=== PATIENT | female | born 2000 | race Caucasian/White ===

== ENCOUNTER 2023-08-14 00:58 | Emergency (ER) | payer OTHER, MEDICAID ==
[2023-08-14 01:42] LABS: Absolute Neutrophil Ct (ANC) 8.33 x10^3/uL (1.4-6.9); BASOPHIL % 0.2 % (0.0-0.4); Basophil (Absolute #) 0.02 x10^3/uL (0-0.4); Eosinophil % 0.5 % (0.00-5.0); Eosinophil (Absolute #) 0.05 x10^3/uL (0-0.5); Hematocrit 43.5 % (35-47); Hemoglobin 14.7 g/dL (12.0-16.0); IMMATURE GRAN # 0.03 x10^3u/L (0.00-0.03); IMMATURE GRAN % 0.3 % (0.00-0.4); Lymphocyte (Absolute #) 0.76 x10^3/uL (1.0-4.6); Lymphocytes % 7.9 % (24.0-44.0); Mean Cell Volume 88.6 fL (78-100); Mean Corpuscular Hemoglobin 29.9 pg (26-32); Mean Corpuscular Hgb Concent. 33.8 g/dL (32-36); Mean Platelet Volume 10.6 fL (7.5-11.0); Monocyte (Absolute #) 0.43 x10^3/uL (0.0-1.3); Monocytes % 4.5 % (0.0-12.0); Neutrophil % 86.6 % (36.0-66.0); Platelet Count 201 x10^3/uL (150-450); Red Blood Count 4.91 x10^6/uL (4.1-5.4); Red Cell Distribution Width 11.4 % (11.5-14.0); White Blood Count 9.6 x10^3/uL (4.0-10.5)
[2023-08-14 01:44] LABS: HCG URINE TEST NEGATIVE (NEGATIVE)
[2023-08-14 01:48] LABS: Appearance Clear (Clear); Bacteria Few /HPF (None Seen); Bilirubin Negative (Negative); Blood Negative (Negative); Epithelial Cells Few /HPF (None Seen); Glucose, Urine Negative (Negative); Ketones 40 (Negative); Leukocyte Esterase Negative (Negative); Nitrite Negative (Negative); Ph 5.5 (4.6-8.0); Protein,Urine Dip Trace (Negative); RBC 0-2 /HPF (0-5); Specific Gravity >=1.030 (1.005-1.030)
[2023-08-14 01:49] VITALS: RESP 20; TEMP 97.2; O2SAT 98
[2023-08-14] MEDS ORDERED: Zofran 4 MG/2 ML VIAL ONE (01:50)
[2023-08-14] MEDS ORDERED: Sodium Chloride 0.9% 1000 ML 1,000 ML ONE (01:50)
[2023-08-14] MEDS: Sodium Chloride 0.9% 1000 ML 1,000 ML IV STA (01:51)
[2023-08-14] MEDS: Zofran 4 MG/2 ML VIAL IV ONE (01:51)
[2023-08-14 01:54] LABS: ADD URINE CULTURE? YES (NO)
[2023-08-14 01:55] LABS: ALBUMIN 4.8 g/dL (3.5-5.0); BILIRUBIN,TOTAL 0.6 mg/dL (0.2-1.3); Calcium 9.5 mg/dL (8.4-10.2); Creatinine 1 0.97 mg/dL (0.52-1.04); EST GLOMERULAR FILTRATION RATE 85.8 ML/MIN; Potassium 3.9 mmol/L (3.5-5.1); Total Protein 8.3 g/dL (6.3-8.2)
[2023-08-14 02:00] LABS: Amphetamine,Urine NEGATIVE (NEGATIVE); Barbiturate,Urine NEGATIVE (NEGATIVE); Benzodiazepine,Urine NEGATIVE (NEGATIVE); Cocaine,Urine NEGATIVE (NEGATIVE); Methadone,Urine NEGATIVE (NEGATIVE); Opiate,Urine NEGATIVE (NEGATIVE); PCP,Urine NEGATIVE (NEGATIVE); THC,Urine NEGATIVE (NEGATIVE)
--- NOTE | 2023-08-14 02:24 | ERPHSYRPT ---
- History of Present Illness Time Seen by Provider: 08/14/23 01:30 Historian: patient Exam Limitations: no limitations Patient Subjective Stated Complaint: pt states that she has been having stomach pain off and on all day Triage Nursing Assessment: pt ambulated into the er; pt is axo x4; c/o abd pain; pt states 8/10 pain to abd; abd soft, round, tender; active bowel sounds in all quads; c/o N/V/D; mucus membranes pink and moist; skin cohen, warm, dry; no respiratory distress present; vitals wnl Physician History: 22yo f pmhx diverticulosis, IBS presents for n/v/d/abdominal pain. Pt reports this pain started roughly 5h prior to arrival in ED. Pt states her pain is located in the epigastric region, does not radiate. Pt admits to NB emesis x 1 w/ continued nausea, reports 2 episodes of non-bloody diarrhea. Pt denies any recent travel, denies ingestion of any foods that are outside her typical diet. Pt does report she had a viral URI last week. Pt currently denies cp, soa, fevers, chills. 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) Activities at Onset: none Quality: burning, cramping Abdominal Pain Onset Location: epigastric Pain Radiation: no radiation Severity of Pain-Max: moderate Severity of Pain-Current: mild Modifying Factors: Improves With: nothing Associated Symptoms: diarrhea, nausea, vomiting, No back, No chest pain, No diaphoresis, No fever/chills Previous symptoms: no prior history Body Map: 1 - epigastric pain Allergies/Adverse Reactions: No Known Drug Allergies Allergy (Unverified 08/14/23 01:18) Home Medications: Buspirone HCl 5 mg [Buspar 5 mg] 10 mg PO DAILY 08/14/23 [History] Multivitamin with Iron [Multivitamins with Iron] 1 each PO DAILY 08/14/23 [History] Norgestimate-Ethinyl Estradiol [Estarylla 0.25-0.035 mg Tablet] 1 each PO DAILY 08/14/23 [History] Omeprazole 40 mg PO DAILY 08/14/23 [History] buPROPion HCL [Wellbutrin Xl] 150 mg PO DAILY 08/14/23 [History] Hx Tetanus, Diphtheria Vaccination/Date Given: Yes Hx Influenza Vaccination/Date Given: Yes Hx Pneumococcal Vaccination/Date Given: No Immunizations Up to Date: Yes Travel Risk - International Travel Have you traveled outside of the country in past 3 weeks: No - Coronavirus Screening Are you exhibiting any of the following symptoms?: Yes Symptoms: Vomiting/Diarrhea Close contact with a COVID-19 positive Pt in past 14-21 Days: No - Vaccine Status Have you recieved a Covid-19 vaccination: Yes 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[place] - Vaccination Dates Date of 2cond Vaccination (if applicable): 2020 - Review of Systems Constitutional: No Fever, No Chills, No Fatigue Respiratory: No Symptoms Cardiac: No Symptoms Abdominal/Gastrointestinal: Abdominal Pain, Nausea, Vomiting, Diarrhea, No Constipation, No Hematemesis, No Hematochezia, No Melena Genitourinary Symptoms: No Symptoms - Past Medical History Pertinent Past Medical History: Yes GI Medical History: Diverticulosis, GERD, Irritable Bowel Psycho-Social History: Anxiety, Depression - Past Surgical History Past Surgical History: No - Social History Smoking Status: Never smoker Exposure to second hand smoke: No Drug Use: none Patient Lives Alone: No - Female History Hx Now: No - Nursing Vital Signs Nursing Vital Signs: Initial Vital Signs Temperature 97.2 F 08/14/23 01:22 Pulse Rate 93 H 08/14/23 01:22 Respiratory Rate 20 08/14/23 01:22 Blood Pressure 133/88 08/14/23 01:22 O2 Sat by Pulse Oximetry 98 08/14/23 01:22 Pain Scale Pain Intensity 3 - Physical Exam General Appearance: no apparent distress, alert Respiratory Exam: normal breath sounds, lungs clear, airway intact, No chest tenderness, No respiratory distress Cardiovascular Exam: regular rate/rhythm, normal heart sounds, No murmur Gastrointestinal/Abdomen Exam: soft, normal bowel sounds, tenderness (epigastric), No distention, No guarding, No rebound SpO2 Interpretation: normal SpO2: 98 O2 Delivery: Room Air Ordered Tests: Active Orders 24 hr Category Date Time Status ABDOMEN AND PELVIS W CONTRAST [CT] Stat Exams 08/14/23 01:47 Completed CBC W DIFF Stat Lab 08/14/23 01:30 Completed CMP Stat Lab 08/14/23 01:30 Completed CULTURE,URINE Stat Lab 08/14/23 01:30 Received HCG QUALITATIVE, URINE Stat Lab 08/14/23 01:30 Completed LIPASE Stat Lab 08/14/23 01:30 Completed UA W/RFX UR CULTURE Stat Lab 08/14/23 01:30 Completed Urine Triage Profile Stat Lab 08/14/23 01:30 Completed Medication Summary Discontinued Medications Generic Name Dose Route Start Last Admin Trade Name Clark PRN Reason Stop Dose Admin Sodium Chloride 1,000 mls @ 999 mls/hr 08/14/23 01:20 08/14/23 03:15 Sodium Chloride 0.9% 1000 Ml IV 08/14/23 02:20 Infused .Q1H1M STA Infusion Sodium Chloride Confirm 08/14/23 01:50 Sodium Chloride 0.9% 1000 Ml Administered 08/14/23 01:51 Dose 1,000 mls @ ud .ROUTE .STK-MED ONE Ondansetron HCl 4 mg 08/14/23 01:46 08/14/23 01:51 Ondansetron Hcl 4 Mg/2 Ml Vial IV 08/14/23 01:47 4 mg STAT ONE Administration Ondansetron HCl Confirm 08/14/23 01:50 Ondansetron Hcl 4 Mg/2 Ml Vial Administered 08/14/23 01:51 Dose 4 mg .ROUTE .STK-MED ONE Lab/Rad Data: Laboratory Result Diagrams 08/14/23 01:30 08/14/23 01:30 Laboratory Results 08/14/23 08/14/23 08/14/23 Range/Units 01:30 01:30 01:30 WBC (4.0-10.5) x10^3/uL RBC (4.1-5.4) x10^6/uL Hgb (12.0-16.0) g/dL Hct (35-47) % MCV (78-100) fL MCH (26-32) pg MCHC (32-36) g/dL RDW (11.5-14.0) % Plt Count (150-450) x10^3/uL MPV (7.5-11.0) fL Gran % (36.0-66.0) % Immature Gran % (Auto) (0.00-0.4) % Nucleat RBC Rel Count (0.00-0.1) % Eos # (Auto) (0-0.5) x10^3/uL Immature Gran # (Auto) (0.00-0.03) x10^3u/L Absolute Lymphs (auto) (1.0-4.6) x10^3/uL Absolute Monos (auto) (0.0-1.3) x10^3/uL Absolute Nucleated RBC (0.00-0.01) x10^3u/L Lymphocytes % (24.0-44.0) % Monocytes % (0.0-12.0) % Eosinophils % (0.00-5.0) % Basophils % (0.0-0.4) % Absolute Granulocytes (1.4-6.9) x10^3/uL Basophils # (0-0.4) x10^3/uL Sodium (135-145) mmol/L Potassium (3.5-5.1) mmol/L Chloride (98-107) mmol/L Carbon Dioxide (22-30) mmol/L Anion Gap (5-15) MEQ/L BUN (7-17) mg/dL Creatinine (0.52-1.04) mg/dL Estimated GFR ML/MIN Glucose (74-106) mg/dL Calcium (8.4-10.2) mg/dL Total Bilirubin (0.2-1.3) mg/dL AST (14-36) U/L ALT (0-35) U/L Alkaline Phosphatase (38-126) U/L Serum Total Protein (6.3-8.2) g/dL Albumin (3.5-5.0) g/dL Lipase (23-300) U/L Urine Color Dark Yellow A (Yellow) Urine Appearance Clear (Clear) Urine pH 5.5 (4.6-8.0) Ur Specific [place] >=1.030 A (1.005-1.030) Urine Protein Trace A (Negative) Urine Glucose (UA) Negative (Negative) mg/dL Urine Ketones 40 A (Negative) Urine Blood Negative (Negative) Urine Nitrite Negative (Negative) Urine Bilirubin Negative (Negative) Urine Urobilinogen 1.0 A (0.2) mg/dL Ur Leukocyte Esterase Negative (Negative) U Hyaline Cast (Auto) 3-5 A (0-2) /LPF Urine Microscopic RBC 0-2 (0-5) /HPF Urine Microscopic WBC 6-10 A (0-5) /HPF Ur Epithelial Cells Few (None Seen) /HPF Urine Bacteria Few A (None Seen) /HPF Urine Culture Reflexed YES (NO) Urine HCG, Qual NEGATIVE (NEGATIVE) Urine Opiates Level NEGATIVE (NEGATIVE) Ur Methadone NEGATIVE (NEGATIVE) Urine Barbiturates NEGATIVE (NEGATIVE) Ur Phencyclidine (PCP) NEGATIVE (NEGATIVE) Urine Amphetamine NEGATIVE (NEGATIVE) U Benzodiazepine Level NEGATIVE (NEGATIVE) Urine Cocaine NEGATIVE (NEGATIVE) Urine Marijuana (THC) NEGATIVE (NEGATIVE) 08/14/23 08/14/23 Range/Units 01:30 01:30 WBC 9.6 (4.0-10.5) x10^3/uL RBC 4.91 (4.1-5.4) x10^6/uL Hgb 14.7 (12.0-16.0) g/dL Hct 43.5 (35-47) % MCV 88.6 (78-100) fL MCH 29.9 (26-32) pg MCHC 33.8 (32-36) g/dL RDW 11.4 L (11.5-14.0) % Plt Count 201 (150-450) x10^3/uL MPV 10.6 (7.5-11.0) fL Gran % 86.6 H (36.0-66.0) % Immature Gran % (Auto) 0.3 (0.00-0.4) % Nucleat RBC Rel Count 0.0 (0.00-0.1) % Eos # (Auto) 0.05 (0-0.5) x10^3/uL Immature Gran # (Auto) 0.03 (0.00-0.03) x10^3u/L Absolute Lymphs (auto) 0.76 L (1.0-4.6) x10^3/uL Absolute Monos (auto) 0.43 (0.0-1.3) x10^3/uL Absolute Nucleated RBC 0.00 (0.00-0.01) x10^3u/L Lymphocytes % 7.9 L (24.0-44.0) % Monocytes % 4.5 (0.0-12.0) % Eosinophils % 0.5 (0.00-5.0) % Basophils % 0.2 (0.0-0.4) % Absolute Granulocytes 8.33 H (1.4-6.9) x10^3/uL Basophils # 0.02 (0-0.4) x10^3/uL Sodium 140 (135-145) mmol/L Potassium 3.9 (3.5-5.1) mmol/L Chloride 105 (98-107) mmol/L Carbon Dioxide 22 (22-30) mmol/L Anion Gap 16.0 H (5-15) MEQ/L BUN 18 H (7-17) mg/dL Creatinine 0.97 (0.52-1.04) mg/dL Estimated GFR 85.8 ML/MIN Glucose 98 (74-106) mg/dL Calcium 9.5 (8.4-10.2) mg/dL Total Bilirubin 0.60 (0.2-1.3) mg/dL AST 44 H (14-36) U/L ALT 18 (0-35) U/L Alkaline Phosphatase 61 (38-126) U/L Serum Total Protein 8.3 H (6.3-8.2) g/dL Albumin 4.8 (3.5-5.0) g/dL Lipase 138 (23-300) U/L Urine Color (Yellow) Urine Appearance (Clear) Urine pH (4.6-8.0) Ur Specific [place] (1.005-1.030) Urine Protein (Negative) Urine Glucose (UA) (Negative) mg/dL Urine Ketones (Negative) Urine Blood (Negative) Urine Nitrite (Negative) Urine Bilirubin (Negative) Urine Urobilinogen (0.2) mg/dL Ur Leukocyte Esterase (Negative) U Hyaline Cast (Auto) (0-2) /LPF Urine Microscopic RBC (0-5) /HPF Urine Microscopic WBC (0-5) /HPF Ur Epithelial Cells (None Seen) /HPF Urine Bacteria (None Seen) /HPF Urine Culture Reflexed (NO) Urine HCG, Qual (NEGATIVE) Urine Opiates Level (NEGATIVE) Ur Methadone (NEGATIVE) Urine Barbiturates (NEGATIVE) Ur Phencyclidine (PCP) (NEGATIVE) Urine Amphetamine (NEGATIVE) U Benzodiazepine Level (NEGATIVE) Urine Cocaine (NEGATIVE) Urine Marijuana (THC) (NEGATIVE) - Progress Progress: improved Progress Note: 08/14/23 03:20 CT abd/pel negative for acute abdominal pathology pt reports significant improvement in pain and nausea after IV fluids and zofran labs grossly normal, UA suggestive of dehydration, no UTI Likely viral gastritis/gastroenteritis in setting of recent URI pt reports significant improvement in sx plan for dc home, instructed to hydrate w/ clear liquids/pedialyte/gatorade diet as tolerated, recommend bland carbohydrates initially f/u w/ PCP as needed return to ED if sx worsen, fever spikes, emesis or stool becomes bloody Counseled pt/family regarding: lab results, diagnosis, need for follow-up, rad r [employer] - Diagnostic Testing Diagnostic test were ordered, analyzed, and reviewed by me: Yes Radiological Interpretation: Reviewed by me, Teleradiologist Report - Risk of complications Minimal Risk: Minimal risk of morbidity - Departure Departure Disposition: Home Clinical Impression: Viral gastroenteritis Condition: Stable Critical Care Time: No Referrals: EFRAIN NEWMAN, GLASS TUBE BENDER [Primary Care Provider] - Follow up/PCP as directed Additional Instructions: instructed to hydrate w/ clear liquids/pedialyte/gatorade diet as tolerated, recommend bland carbohydrates initially f/u w/ PCP as needed return to ED if sx worsen, fever spikes, emesis or stool becomes bloody
--- NOTE | 2023-08-14 03:05 | XRAY ---
CLINICAL HISTORY: epigastric pain TECHNIQUE: CT of the abdomen and pelvis was performed with axial images and sagittal and coronal reconstruction images with intravenous contrast. COMPARISON: None FINDINGS: The liver is average in size, it shows normal morphology and appears unremarkable with no intrahepatic or extrahepatic bile duct dilation. Gall bladder appears normal with wall thickness. No radio-opaque calculus or pericholecystic fluid was identified. Common bile appears normal. Unremarkable appearing pancreas. No pancreatic mass or ductal dilatation is seen. Unremarkable appearing spleen. The adrenal glands are normal. The kidneys appear unremarkable with no stones or hydronephrosis. The ureters are normal with no stones. The bladder is unremarkable with no stones. Unremarkable uterus and ovaries. Unremarkable abdominal aorta without specific evidence of aneurysm or dissection. The stomach appears unremarkable. Unremarkable appearing duodenum. The appendix is visualized and appears normal. No evidence of fat stranding. The colon is non-distended. No free air and no ascites. No free intraperitoneal air is seen. Bones appear grossly unremarkable apart from mild lumbar scoliosis convex to the left side. Clear scanned lung bases. IMPRESSION: Unremarkable CT study of the abdomen and pelvis. No acute abnormalities were detected. Electronically Signed by: Sveta Ayala MD. (08/14/2023 03:01:07 EST)
[2023-08-14 03:34] VITALS: BP 121/98; PULSE 93
== END 2023-08-14 03:34 | disposition home or self-care (01) ==
LOC: ED 00:58
DX: A08.4 Viral intestinal infection, unspecified (principal); R11.2 Nausea with vomiting, unspecified; R19.7 Diarrhea, unspecified; Z20.828 Contact with and (suspected) exposure to other viral communicable diseases; R10.13 Epigastric pain
CPT/HCPCS: 36000; 36415; 74177; 80053; 80307; 81001; 81025; 83690; 85025; 87086; 96360; 96374; 99284; J2405

== ENCOUNTER 2023-10-19 09:51 | Observation (INO) | payer OTHER, MEDICAID ==
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
[2023-10-19] MEDS ORDERED: Sterile H2O 10 ml IJ ONE (10:29)
[2023-10-19] MEDS ORDERED: solu-MEDROL ONE (10:30)
[2023-10-19] MEDS ORDERED: Zofran 4 MG/2 ML VIAL ONE (10:30)
[2023-10-19] MEDS ORDERED: Pepcid 20 MG VIAL IV ONE (10:30)
[2023-10-19] MEDS ORDERED: MORPHINE SULFATE 2 MG INJ ONE (10:31)
[2023-10-19] MEDS: Zofran 4 MG/2 ML VIAL IV ONE (10:37)
[2023-10-19] MEDS: solu-MEDROL 125 MG, Sterile H2O 10 ml 2 ML IV ONE (10:41)
[2023-10-19] MEDS: MORPHINE SULFATE 2 MG INJ IV ONE (10:41)
[2023-10-19] MEDS: Pepcid 20 MG VIAL IV SCH (10:41)
[2023-10-19 10:54] LABS: Absolute Neutrophil Ct (ANC) 4.92 x10^3/uL (1.4-6.9); BASOPHIL % 0.5 % (0.0-0.4); Basophil (Absolute #) 0.04 x10^3/uL (0-0.4); Eosinophil % 2.1 % (0.00-5.0); Eosinophil (Absolute #) 0.16 x10^3/uL (0-0.5); Hematocrit 40.7 % (35-47); Hemoglobin 14.4 g/dL (12.0-16.0); IMMATURE GRAN # 0.02 x10^3u/L (0.00-0.03); IMMATURE GRAN % 0.3 % (0.00-0.4); Lymphocyte (Absolute #) 2.11 x10^3/uL (1.0-4.6); Lymphocytes % 27.6 % (24.0-44.0); Mean Cell Volume 85.9 fL (78-100); Mean Corpuscular Hemoglobin 30.4 pg (26-32); Mean Corpuscular Hgb Concent. 35.4 g/dL (32-36); Mean Platelet Volume 11.1 fL (7.5-11.0); Monocyte (Absolute #) 0.39 x10^3/uL (0.0-1.3); Monocytes % 5.1 % (0.0-12.0); Neutrophil % 64.4 % (36.0-66.0); Platelet Count 265 x10^3/uL (150-450); Red Blood Count 4.74 x10^6/uL (4.1-5.4); Red Cell Distribution Width 11.2 % (11.5-14.0); White Blood Count 7.6 x10^3/uL (4.0-10.5)
[2023-10-19 11:08] LABS: ALBUMIN 4.5 g/dL (3.5-5.0); ANION GAP 13.2 MEQ/L (5-15); BILIRUBIN,TOTAL 0.6 mg/dL (0.2-1.3); Calcium 9.7 mg/dL (8.4-10.2); Creatinine 1 1.05 mg/dL (0.52-1.04); EST GLOMERULAR FILTRATION RATE 77.5 ML/MIN; Potassium 3.8 mmol/L (3.5-5.1); Total Protein 8.1 g/dL (6.3-8.2)
[2023-10-19] MEDS ORDERED: Zofran 4 MG/2 ML VIAL IV PRN (12:13)
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
[2023-10-19] MEDS ORDERED: MEDICATION INTERVENTION MC SCH (14:15)
[2023-10-19] MEDS: BENADRYL 50 MG/ML IV PRN (14:57)
[2023-10-19 17:17] LABS: HCG URINE TEST NEGATIVE (NEGATIVE)
[2023-10-19] MEDS ORDERED: solu-MEDROL 40 MG, Sterile H2O 10 ml 1 ML IV SCH (18:00)
[2023-10-19] MEDS: solu-MEDROL 60 MG, Sterile H2O 10 ml 1 ML IV SCH (18:10)
[2023-10-19] MEDS: Sodium Chloride 0.9% 1000 ML 1,000 ML IV SCH (21:45)
[2023-10-19] MEDS: BUSPAR 5 MG PO SCH (22:37)
[2023-10-20 04:54] LABS: Absolute Neutrophil Ct (ANC) 12.96 x10^3/uL (1.4-6.9); BASOPHIL % 0.1 % (0.0-0.4); Basophil (Absolute #) 0.02 x10^3/uL (0-0.4); Eosinophil % 0.1 % (0.00-5.0); Eosinophil (Absolute #) 0.01 x10^3/uL (0-0.5); Hematocrit 38.5 % (35-47); Hemoglobin 13.5 g/dL (12.0-16.0); IMMATURE GRAN # 0.04 x10^3u/L (0.00-0.03); IMMATURE GRAN % 0.3 % (0.00-0.4); Lymphocyte (Absolute #) 0.66 x10^3/uL (1.0-4.6); Lymphocytes % 4.8 % (24.0-44.0); Mean Cell Volume 84.6 fL (78-100); Mean Corpuscular Hemoglobin 29.7 pg (26-32); Mean Corpuscular Hgb Concent. 35.1 g/dL (32-36); Mean Platelet Volume 11.1 fL (7.5-11.0); Monocyte (Absolute #) 0.15 x10^3/uL (0.0-1.3); Monocytes % 1.1 % (0.0-12.0); Neutrophil % 93.6 % (36.0-66.0); Platelet Count 217 x10^3/uL (150-450); Red Blood Count 4.55 x10^6/uL (4.1-5.4); Red Cell Distribution Width 11.3 % (11.5-14.0); White Blood Count 13.8 x10^3/uL (4.0-10.5)
[2023-10-20] MEDS ORDERED: solu-MEDROL ONE (06:07)
[2023-10-20] MEDS: BUSPAR 5 MG PO SCH (07:43)
[2023-10-20] MEDS: Protonix 40MG Tablet PO SCH (08:59)
[2023-10-20] MEDS: Wellbutrin XL 150 MG PO SCH (08:59)
[2023-10-20] MEDS: Bactroban OINTMENT TP SCH (08:59)
[2023-10-20] MEDS: PATIENT OWN MEDICATION PO SCH (08:59)
[2023-10-20] MEDS ORDERED: BUSPAR 5 MG PO SCH (10:00)
[2023-10-20] MEDS ORDERED: NORGESTIMATE ETHINYL ESTRADIOL PO SCH (10:00)
[2023-10-20] MEDS ORDERED: NON-FORMULARY ITEM (Omeprazole [Omeprazole] 40 MG Capsule.Dr) PO SCH (10:00)
[2023-10-20] MEDS ORDERED: Protonix 40MG Tablet PO SCH (10:00)
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
[2023-10-21 05:02] LABS: BASOPHIL % 0.1 % (0.0-0.4); Basophil (Absolute #) 0.03 x10^3/uL (0-0.4); Eosinophil (Absolute #) 0 x10^3/uL (0-0.5); Hematocrit 38.3 % (35-47); IMMATURE GRAN # 0.19 x10^3u/L (0.00-0.03); IMMATURE GRAN % 0.8 % (0.00-0.4); Lymphocyte (Absolute #) 0.84 x10^3/uL (1.0-4.6); Lymphocytes % 3.7 % (24.0-44.0); Mean Cell Volume 86.5 fL (78-100); Mean Corpuscular Hemoglobin 29.3 pg (26-32); Mean Corpuscular Hgb Concent. 33.9 g/dL (32-36); Mean Platelet Volume 11.3 fL (7.5-11.0); Monocyte (Absolute #) 0.29 x10^3/uL (0.0-1.3); Monocytes % 1.3 % (0.0-12.0); Neutrophil % 94.1 % (36.0-66.0); Platelet Count 244 x10^3/uL (150-450); Red Blood Count 4.43 x10^6/uL (4.1-5.4); Red Cell Distribution Width 11.5 % (11.5-14.0); White Blood Count 22.8 x10^3/uL (4.0-10.5)
[2023-10-21 05:29] LABS: ALBUMIN 4.3 g/dL (3.5-5.0); ANION GAP 14.4 MEQ/L (5-15); BILIRUBIN,TOTAL 0.3 mg/dL (0.2-1.3); Calcium 9.6 mg/dL (8.4-10.2); Creatinine 1 0.9 mg/dL (0.52-1.04); EST GLOMERULAR FILTRATION RATE 93.3 ML/MIN; Potassium 4.1 mmol/L (3.5-5.1); Total Protein 7.5 g/dL (6.3-8.2)
[2023-10-21] MEDS ORDERED: solu-MEDROL ONE (06:06)
[2023-10-21 07:01] VITALS: BP 117/65; PULSE 77; RESP 16; TEMP 98.8
[2023-10-21 07:20] LABS: Slide Review 1 YES
[2023-10-21 07:29] VITALS: O2SAT 96
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
[2023-10-21] MEDS: Singulair 10 MG PO SCH (10:57)
== END 2023-10-21 12:06 | disposition home or self-care (01) ==
LOC: ED 09:51 → MED SURG 12:07
PROVIDERS: ADMIT Internal Medicine; ATTEND Internal Medicine
DX: T78.40XA Allergy, unspecified, initial encounter (principal); R22.0 Localized swelling, mass and lump, head; L01.00 Impetigo, unspecified; K21.9 Gastro-esophageal reflux disease without esophagitis; F32.A Depression, unspecified; Z79.899 Other long term (current) drug therapy
CPT/HCPCS: 36000; 36415; 80053; 81025; 85025; 93268; 94762; 96374; 96375; 99284; G0378; Q3014; J1200; J2270; J2405; J2919; A9270-GY